=== PATIENT | male | born 1965 | race Caucasian/White ===

== ENCOUNTER 2017-08-25 13:05 | Emergency (ER) | payer MEDICAID ==
[2017-08-25] MEDS: LIDOCAINE 2% (MDV) 20 ML INJ INJ (14:52)
== END 2017-08-25 16:28 | disposition home or self-care (01) ==
LOC: FTE 13:05
DX: S41.112A Laceration without foreign body of left upper arm, initial encounter (principal); S61.012A Laceration without foreign body of left thumb without damage to nail, initial encounter; V89.2XXA Person injured in unspecified motor-vehicle accident, traffic, initial encounter
CPT/HCPCS: 12004; 73090; 73110-LT; 73130-LT; 99283-25

== ENCOUNTER 2017-08-31 08:36 | Emergency (ER) | payer MEDICAID | END 2017-08-31 11:00 | disposition home or self-care (01) | LOC: FTE 08:36 | DX: Z48.02 Encounter for removal of sutures (principal) | CPT/HCPCS: 73130; 73130-RT; 99283-25 ==